=== PATIENT | female | born 1975 | race Caucasian/White ===

== ENCOUNTER 2018-07-19 15:51 | Inpatient (IN) ==
[2018-07-19] MEDS ORDERED: MoRPHine SULFATE 4 MG/ML 1 ML CARP\\VIAL IV STA (18:09)
[2018-07-19] MEDS ORDERED: SODIUM CHLORIDE 0.9% 1000ML 1,000 ML IV SCH (18:15)
[2018-07-19 18:37] LABS: Basophils # (auto) 0.07 K/uL (0-0.2); Basophils % (auto) 0.9 %; Eosinophils % (auto) 3.8 %; Hematocrit (blood only) 38.9 % (37-47); Hemoglobin 12.8 g/dL (12.0-16.0); Immature Granulocytes # (auto) 0.05 K/uL (0.00-0.02); Immature Granulocytes % (auto) 0.6 %; Lymphocytes # (auto) 2.48 K/uL (1.2-3.4); Lymphocytes % (auto) 31.1 %; Mean Corpuscular Hgb Conc 32.9 g/dL (32-36); Mean Corpuscular Volume 88.6 fL (80-100); Mean Platelet Volume 9.1 fL (7.4-10.4); Monocytes # (auto) 0.49 K/uL (0.11-0.59); Monocytes % (auto) 6.1 %; Neutrophils # (auto) 4.59 K/uL (1.4-6.5); Neutrophils % (auto) 57.5 %; Platelet Count 234 K/uL (130-400); RDW Coefficient of Variation 13.5 % (11.5-14.5); RDW Standard Deviation 43.9 fL (36.4-46.3); Red Blood Count 4.39 M/uL (4.2-5.4); White Blood Count 7.98 K/uL (4.8-10.8)
[2018-07-19 18:54] LABS: Appearance Urine Cloudy (Clear); Bacteria Urine Automated Negative (Negative); Bilirubin Urine Negative (Negative); Color Urine Yellow; Epithelial Cell Urine Auto >30 /lpf (0-5); Glucose Urine UA Negative (Negative); Ketones Urine Negative (Negative); Leukocyte Esterase Urine 1+ (Negative); Nitrite Urine Negative (Negative); Protein Urine Negative (Negative); Specific Gravity Urine 1.017 (1.000-1.030); Urobilinogen Urine Negative (Negative); pH Urine 5.5 (4.5-7.5)
[2018-07-19 19:00] LABS: Albumin Globulin Ratio 0.4 (0.9-2); Albumin Level 2.7 gm/dl (3.4-5.0); BUN Creatinine Ratio 18.2 (10-20); Bilirubin,Total 0.3 mg/dl (0.2-1); Est GFR (African American) 118.6; Est GFR (Non-African American) 102.3; Globulin 6.6 gm/dl (2.5-4.0); Total Protein 9.3 gm/dl (6.4-8.2)
[2018-07-19 19:06] LABS: Potassium 3.9 mmol/L (3.5-5.1)
[2018-07-19] MEDS: ONDANSETRON INJ 2 MG/ML 2 ML VIAL IV STA (19:09)
--- NOTE | 2018-07-19 20:00 | Ultrasound Report ---
EXAMINATION: RENAL ULTRASOUND CLINICAL HISTORY: Right flank pain COMPARISON STUDY: FINDINGS: The right kidney measures 14.2 cm. The left kidney measures 13.2 cm. There is mild right-s ided hydronephrosis. The proximal right ureter is mildly dilated measuring 12 mm. There are no renal masses. The bladder was not well-distended. Neither ureteral jet was visualized. IMPRESSION : 1. Mild right-sided hydronephrosis and proximal hydroureter. In the setting of acute right flank pain , this may indicate an obstructing calculus. A CT scan could be obtained in follow-up for further zia luation as deemed clinically necessary. Electronically signed by: Andrei Voss M.D. 07/19/2018 7:59 PM
[2018-07-19] MEDS ORDERED: cefTRIAXone SODIUM 1,000 MG/50 ML BAG IV STA (20:14)
--- NOTE | 2018-07-19 20:20 | XRay Report ---
KUB CLINICAL HISTORY: Right flank pain. COMPARISON STUDY: None. FINDINGS: Both renal shadows are partially obscured by stool. A round 2 mm right pelvic calcification is noted. There is also a 3 mm calcification inferior to the right sacroiliac joint. Additional pelv ic calcifications likely reflect phleboliths. Bowel gas pattern is normal. IMPRESSION: 1. 3 mm right upper calcification just inferior to the right sacroiliac joint. This raises the possib ility of a ureteral calculus. The appearance is not typical for a phlebolith. Vascular calcification could have this appearance. 2. 2 mm rounded right pelvic calcification which favors a phlebolith although a distal right ureteral calculus could have this appearance. Electronically signed by: Jagjit Holguin M.D. 07/19/2018 8:19 PM
--- NOTE | 2018-07-19 21:52 | History & Physical Report ---
Date of Service July 19, 2018 Assessment & Plan (1) Complicated UTI (urinary tract infection): Obstructive uropathy Persistent symptoms Failed outpatient treatment outpatient urine CS drawn at [facility] unknown patient not septic. psoriatic arthritis, stable disease asthma/pulmonary sarcoidosis, stable as per patient intermittent tobacco abuse GMF Follow urine CS done at [facility] Continue Flomax, oral cephalosporin Rx Urology consult RE obstructive uropathy right (ER provider already in touch with Dr. Whittington. Surgery contemplated tomorrow morning.) Nicotine replacement therapy as needed DVT prophylaxis. Lovenox subcu Full code Patient sister requesting updates from providers. Ms. Elham Coleman, contact #[phone]. History of Present Illness Chief Complaint: Right flank pain Primary Care Provider: Dr. Lopez History obtained from patient and records. Medical history significant for psoriatic arthritis, asthma/pulmonary sarcoidosis, hypothyroidism, intermittent tobacco abuse. 10 days ago patient seen at [facility] for UTI symptoms attributed to UTI. Patient prescribed Macrodantin. Patient still unwell a week later. Patient noted worsening right flank pain, no hematuria, no fever, no chills. CAT scan of the abdomen pelvis done at [facility] last week showed 3 kidney stones on the right as per patient. She was prescribed Cefuroxime and Flomax. Outpatient urology referral in [place], [place] contemplated. Patient brought by sister to the emergency room for worsening symptoms. 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 Allergies Allergy/AdvReac Type Severity Reaction Status Date / Time prednisone Allergy Severe Swelling Verified 07/19/18 19:04 of Lip/Tongue/Throat Home Medications Home Medications Medication Instructions Recorded Confirmed Type cefuroxime axetil 500 mg PO Q12H 07/19/18 07/19/18 History fluoxetine [Prozac] 40 mg PO DAILY 07/19/18 07/19/18 History ketorolac 10 mg PO Q6H PRN 07/19/18 07/19/18 History levothyroxine 125 mcg PO DAILY 07/19/18 07/19/18 History loratadine 10 mg PO DAILY 07/19/18 07/19/18 History tamsulosin [Flomax] 0.4 mg PO DAILY 07/19/18 07/19/18 History Past Med/Surg History Medical History Arthritis Asthma Fatty liver Hypothyroid Obesity Sarcoidosis Surgical History History of History of liver biopsy History of lung biopsy History of tubal ligation Family History Other Family history non-contributory Social History Current Living Situation: Family and Significant Other Current Living Situation Comment: 3 children, boyfriend Other Information That Helps Us Care for You: No Feels Safe at Home: Yes Safety Concerns: Feels Safe At This Time Smoking Status: Light tobacco smoker Tobacco Type: cigarettes Cigarettes per Day: smokes 1 pack/month, recreationally Do You Dip or Chew Tobacco: No Hx Alcohol Use: Yes Alcohol type: wine Alcohol Intake Frequency: holidays/ special occasions only Hx Substance Use: No Beliefs That Will Affect Care: None Preferred Language: Bolivian Communication Ability: Effective Tower Climber Required: No Review of Systems As per HPI, all 10 systems reviewed, all other ROS negative Physical Exam 2 Vital Signs (Past 24 Hours): Last Vital Signs Temp 36.7 C 07/19/18 16:03 Pulse 80 07/19/18 21:31 Resp 17 07/19/18 21:31 BP 119/65 07/19/18 21:31 Pulse Ox 96 07/19/18 21:31 Physical Exam: GENERAL: Comfortable, obese, no respiratory distress SKIN: Normal color, warm HEENT: Henry palpebral conjunctivae, no ptosis, dry buccal mucosa NECK : Supple, short neck, no tenderness CHEST : CTA, no tenderness HEART : RRR, no obvious murmurs ABDOMEN: Some distention, right-sided abdominal tenderness EXTREMITIES : No LE swelling/tenderness, no other conspicuous deformities noted NEUROLOGIC : Coherent, no facial asymmetry, no other gross focality Results & Data Laboratory Results Laboratory Results WBC 7.98 K/uL (4.8-10.8) 07/19/18 18:26 RBC 4.39 M/uL (4.2-5.4) 07/19/18 18:26 Hgb 12.8 g/dL (12.0-16.0) 07/19/18: Hct 38.9 % (37-47) 07/19/18: MCV 88.6 fL (80-100) 07/19/18 MCH 29.2 pg (25-34) 07/19/18 MCHC 32.9 g/dL (32-36) 07/19/18 RDW Std Deviation 43.9 fL (36.4-46.3) 07/19/18 RDW Coeff of Loulou 13.5 % (11.5-14.5) 07/19/18 Plt Count 234 K/uL (130-400) 07/19/18 MPV 9.1 fL (7.4-10.4) 07/19/18: Immature Gran % (Auto) 0.6 % 07/19/18: Neut % (Auto) 57.5 % 07/19/18: Lymph % (Auto) 31.1 % 07/19/18: [place] % (Auto) 6.1 % 07/19/18: Eos % (Auto) 3.8 % 07/19/18: Baso % (Auto) 0.9 % 07/19/18: Immature Gran # (Auto) 0.05 K/uL (0.00-0.02) H 07/19/18 Neut # (Auto) 4.59 K/uL (1.4-6.5) 07/19/18: Lymph # (Auto) 2.48 K/uL (1.2-3.4) 07/19/18: [place] # (Auto) 0.49 K/uL (0.11-0.59) 07/19/18: Eos # (Auto) 0.30 K/uL (0-0.5) 07/19/18: Baso # (Auto) 0.07 K/uL (0-0.2) 07/19/18: Sodium 137 mmol/L (136-145) 07/19/18: Potassium 3.9 mmol/L (3.5-5.1) 07/19/18: Chloride 101 mmol/L (98-107) 07/19/18 18: Carbon Dioxide 29 mmol/L (21-32) 07/19/18 18: Anion Gap 6.0 (3-11) 07/19/18 18: BUN 13 mg/dl (7-18) 07/19/18 18: Creatinine 0.73 mg/dl (0.6-1.2) 07/19/18 18 Est Cr Clr Drug Dosing 128.0 ml/min 07/19/18 18: Est GFR ( Amer) 118.6 07/19/18 18: Est GFR (Non-Af Amer) 102.3 07/19/18 18 BUN/Creatinine Ratio 18.2 (10-20) 07/19/18: Glucose 96 mg/dl (70-99) 07/19/18 18: Calcium 9.0 mg/dl (8.5-10.1) 07/19/18: Magnesium 1.8 mg/dl (1.8-2.4) 07/19/18: Total Bilirubin 0.3 mg/dl (0.2-1) 07/19/18 18: AST 51 U/L (15-37) H 07/19/18 18: ALT 52 U/L (12-78) 07/19/18: Alkaline Phosphatase 100 U/L (45-117) 07/19/18 18: Total Protein 9.3 gm/dl (6.4-8.2) H 07/19/18: Albumin 2.7 gm/dl (3.4-5.0) L 07/19/18: Globulin 6.6 gm/dl (2.5-4.0) H 07/19/18 18: Albumin/Globulin Ratio 0.4 (0.9-2) L 07/19/18: Lipase 138 U/L (73-393) 07/19/18 18: Urine Color Yellow 07/19/18 18: Urine Appearance Cloudy (Clear) H 07/19/18 18: Urine pH 5.5 (4.5-7.5) 07/19/18 18: Ur Specific [place] 1.017 (1.000-1.030) 07/19/18 18:26 Urine Protein Negative (Negative) 07/19/18 18:26 Urine Glucose (UA) Negative (Negative) 07/19/18 18:26 Urine Ketones Negative (Negative) 07/19/18 18:26 Urine Blood 1+ (Negative) H 07/19/18 18:26 Urine Nitrite Negative (Negative) 07/19/18 18:26 Urine Bilirubin Negative (Negative) 07/19/18 18:26 Urine Urobilinogen Negative (Negative) 07/19/18 18:26 Ur Leukocyte Esterase 1+ (Negative) H 07/19/18 18:26 Urine WBC (Auto) 10-30 /hpf (0-5) H 07/19/18 18:26 Urine RBC (Auto) 10-30 /hpf (0-4) H 07/19/18 18: U Hyaline Cast (Auto) 1-5 /lpf (0-5) 07/19/18 18: U Epithel Cells (Auto) >30 /lpf (0-5) H 07/19/18 18:26 Urine Bacteria (Auto) Negative (Negative) 07/19/18 18:26 Diagnostic Findings KUB x-ray: 1. 3 mm right upper calcification just inferior to the right sacroiliac joint. This raises the possibility of a ureteral calculus. The appearance is not typical for a phlebolith. Vascular calcification could have this appearance. 2. 2 mm rounded right pelvic calcification which favors a phlebolith although a distal right ureteral calculus could have this appearance. Renal ultrasound: Mild right-sided hydronephrosis and proximal hydroureter. In the setting of acute right flank pain, this may indicate an obstructing calculus. A CT scan could be obtained in follow-up for further evaluation as deemed clinically necessary.
[2018-07-19] MEDS ORDERED: OXYCODONE/ACETAMINOPHEN 5mg/325mg TAB PO PRN (22:45)
[2018-07-19] MEDS ORDERED: PROCHLORPERAZINE 5 MG in SYRINGE 4 ML IV PRN (22:45)
[2018-07-19] MEDS ORDERED: ACETAMINOPHEN 325 MG TAB PO PRN (22:45)
[2018-07-19] MEDS ORDERED: LORazepam 0.5 MG/1 ML VIAL IV PRN (22:45)
--- NOTE | 2018-07-19 23:36 | Emergency Department Note ---
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 She reports she went to the ED recently for flank pain and had a CT scan which she states showed 3 kidney stones and an infection. She states her doctor told her that she has a blockage and she needs a stent. She reports her pain starts in her right flank and radiates to her back. Pt notes her pain is worse with movement. She denies nausea, vomiting, fevers, hx of kidney stones, previous abdominal surgeries. No other exacerbating or remitting factors. Home Medications Home Medications Medication Instructions Recorded Confirmed Type cefuroxime axetil 500 mg PO Q12H 07/19/18 07/19/18 History fluoxetine [Prozac] 40 mg PO DAILY 07/19/18 07/19/18 History ketorolac 10 mg PO Q6H PRN 07/19/18 07/19/18 History levothyroxine 125 mcg PO DAILY 07/19/18 07/19/18 History loratadine 10 mg PO DAILY 07/19/18 07/19/18 History tamsulosin [Flomax] 0.4 mg PO DAILY 07/19/18 07/19/18 History Allergies Allergy/AdvReac Type Severity Reaction Status Date / Time prednisone Allergy Severe Swelling Verified 07/19/18 19:04 of Lip/Tongue/Throat Past Med/Surg History Medical History No significant past medical history Family History Other Family history non-contributory Social History Current Living Situation: Family Feels Safe at Home: Yes Smoking Status: Current some day smoker Preferred Language: Nigerian Review of Systems See HPI for pertinent positives & negatives. and A total of 10 systems reviewed and were otherwise negative Physical Exam Vital Signs Vital Signs - 24 hr 07/19/18 16:03 07/19/18 19:11 07/19/18 21:31 Temperature 36.7 C Temperature Source Oral Sepsis Recent Fever Within 48 Hours No Sepsis New/Unexplained Change in Mental Status No Sepsis Action Taken by Nursing No Action Required Pulse Rate 72 Pulse Rate [Right Finger] 71 80 Pulse Rhythm Regular Pulse Rhythm [Right Finger] Pulse Strength Normal Pulse Strength [Right Finger] Respiratory Rate 20 18 17 Respiratory Effort / Characteristics Non-Labored Spontaneous Respiratory Depth Normal Respiratory Pattern Regular Blood Pressure 161/98 H Blood Pressure [Right Arm] 128/84 119/65 Blood Pressure Mean 119 Blood Pressure Mean [Right Arm] 98 83 Blood Pressure Position Sitting Blood Pressure Position [Right Arm] Pulse Oximetry 97 93 96 Oxygen Delivery Method Room Air Room Air Room Air 07/19/18 22:15 07/19/18 22:49 Temperature 36.9 C Temperature Source Oral Sepsis Recent Fever Within 48 Hours Sepsis New/Unexplained Change in Mental Status Sepsis Action Taken by Nursing Pulse Rate 74 Pulse Rate [Right Finger] 87 Pulse Rhythm Pulse Rhythm [Right Finger] Regular Pulse Strength Pulse Strength [Right Finger] Normal Respiratory Rate 18 18 Respiratory Effort / Characteristics Non-Labored Spontaneous Respiratory Depth Normal Respiratory Pattern Blood Pressure 130/75 Blood Pressure [Right Arm] 120/81 Blood Pressure Mean Blood Pressure Mean [Right Arm] 94 Blood Pressure Position Blood Pressure Position [Right Arm] Standing Pulse Oximetry 97 94 Oxygen Delivery Method Room Air Room Air GENERAL: Sitting up in bed, alert, well appearing, well nourished, no distress, non-toxic EYE EXAM: normal conjunctiva. OROPHARYNX: no exudate, no erythema, lips, buccal mucosa, and tongue normal and mucous membranes are moist NECK: supple, no nuchal rigidity, no adenopathy, non-tender LUNGS: Clear to auscultation. Normal chest wall mechanics HEART: no murmurs, S1 normal and S2 normal ABDOMEN: abdomen soft, tender to palpation in the RLQ, normo-active bowel, sounds, no masses, no rebound or guarding. BACK: Back is symmetrical on inspection and there is no deformity, no midline tenderness, no CVA tenderness. SKIN: no rashes and no bruising UPPER EXTREMITIES: upper extremities are grossly normal. LOWER EXTREMITIES: No pitting edema. NEURO EXAM: Normal sensorium, cranial nerves II-XII grossly intact, normal speech, no gross weakness of arms, no gross weakness of legs. Course ED COURSE: Vital signs were reviewed and showed hypertensive. The patients medical record was reviewed The above diagnostic studies were performed and reviewed. ED treatments and interventions as stated above. 1804: The patient was evaluated in room B2. A complete history and physical examination was performed. 1955: I checked on the patient at this time. I updated her that her results show E. coli sensitive to antibiotic treatment and CT shows a 5 mm stone. 2007: I reviewed the patient's case with Dr. Whittington, Urology. He recommends the patient be further evaluated. 2024: I reviewed the patient's case with Dr. Jarrell [facility]ist. He will evaluate the patient for further management. 2029: Upon reevaluation, the patient is feeling better. I discussed my findings with the patient and she understands and agrees with the treatment plan. Based on the patients age, coexisting illnesses, exam and lab findings the decision to treat as an inpatient was made. The patient remained stable while under my care. The patient will be evaluated for further management. Consultations Consultation #1: I reviewed the patient's case with Dr. Whittington, Urology. He recommends the patient be further evaluated. Time: 20:08 Consultation #2: I reviewed the patient's case with Dr. Jarrell [facility]. He will evaluate the patient for further management. Time: 20:25 Administered Medications Discontinued Medications Sodium Chloride (Nss 1000ml) 1,000 mls @ 999 mls/hr IV .Q1H1M OLEGARIO Stop: 07/19/18 19:15 Last Infusion: 07/19/18 20:14 Dose: 0 mls/hr Admin: 07/19/18 19:09 Dose: 999 mls/hr Ceftriaxone Sodium (Rocephin) 1,000 mg in 50 mls @ 100 mls/hr IV NOW STA Stop: 07/19/18 20:43 Last Infusion: 07/19/18 20:52 Dose: 0 mls/hr Admin: 07/19/18 20:20 Dose: 100 mls/hr Morphine Sulfate (Morphine Sulfate) 4 mg IV NOW STA Stop: 07/19/18 18:10 Last Admin: 07/19/18 19:10 Dose: 4 mg Ondansetron HCl (Zofran) 4 mg IV NOW STA Stop: 07/19/18 18:10 Last Admin: 07/19/18 19:09 Dose: 4 mg Admin: 02/18/19 19:09 Dose: 4 mg Medical Decision Making Differential Diagnosis Differential diagnoses includes but is not limited to gastritis, peptic ulcer disease, GERD, gallbladder disease, pancreatitis, small bowel obstruction, acute coronary syndrome, pericarditis, ischemic bowel, irritable bowel disease, irritable bowel syndrome, appendicitis, diverticulitis, malignancy, hernia, urinary tract infection, torsion, [/ectopic (if female)], perforation, trauma, infectious. Medical Records Attestation: I reviewed the patient's medical records. Home Medications Current Medication List: was personally reviewed by me Laboratory Data Attestation: I reviewed the patient's lab results. Result diagrams: 07/19/18 18:26 07/19/18 18:26 Lab Results 07/19/18 07/19/18 07/19/18 Range/Units 18:26 18:26 18:26 WBC 7.98 (4.8-10.8) K/uL RBC 4.39 (4.2-5.4) M/uL Hgb 12.8 (12.0-16.0) g/dL Hct 38.9 (37-47) % MCV 88.6 (80-100) fL MCH 29.2 (25-34) pg MCHC 32.9 (32-36) g/dL RDW Std Deviation 43.9 (36.4-46.3) fL RDW Coeff of Loulou 13.5 (11.5-14.5) % Plt Count 234 (130-400) K/uL MPV 9.1 (7.4-10.4) fL Immature Gran % (Auto) 0.6 % Neut % (Auto) 57.5 % Lymph % (Auto) 31.1 % [place] % (Auto) 6.1 % Eos % (Auto) 3.8 % Baso % (Auto) 0.9 % Immature Gran # (Auto) 0.05 H (0.00-0.02) K/uL Neut # (Auto) 4.59 (1.4-6.5) K/uL Lymph # (Auto) 2.48 (1.2-3.4) K/uL [place] # (Auto) 0.49 (0.11-0.59) K/uL Eos # (Auto) 0.30 (0-0.5) K/uL Baso # (Auto) 0.07 (0-0.2) K/uL Sodium 137 (136-145) mmol/L Potassium 3.9 (3.5-5.1) mmol/L Chloride 101 (98-107) mmol/L Carbon Dioxide 29 (21-32) mmol/L Anion Gap 6.0 (3-11) BUN 13 (7-18) mg/dl Creatinine 0.73 (0.6-1.2) mg/dl Est Cr Clr Drug Dosing 128.0 ml/min Est GFR ( Amer) 118.6 Est GFR (Non-Af Amer) 102.3 BUN/Creatinine Ratio 18.2 (10-20) Glucose 96 (70-99) mg/dl Calcium 9.0 (8.5-10.1) mg/dl Magnesium (1.8-2.4) mg/dl Total Bilirubin 0.3 (0.2-1) mg/dl AST 51 H (15-37) U/L ALT 52 (12-78) U/L Alkaline Phosphatase 100 (45-117) U/L Total Protein 9.3 H (6.4-8.2) gm/dl Albumin 2.7 L (3.4-5.0) gm/dl Globulin 6.6 H (2.5-4.0) gm/dl Albumin/Globulin Ratio 0.4 L (0.9-2) Lipase 138 (73-393) U/L TSH (0.300-4.500) uIu/ml Urine Color Yellow Urine Appearance Cloudy H (Clear) Urine pH 5.5 (4.5-7.5) Ur Specific [place] 1.017 (1.000-1.030) Urine Protein Negative (Negative) Urine Glucose (UA) Negative (Negative) Urine Ketones Negative (Negative) Urine Blood 1+ H (Negative) Urine Nitrite Negative (Negative) Urine Bilirubin Negative (Negative) Urine Urobilinogen Negative (Negative) Ur Leukocyte Esterase 1+ H (Negative) Urine WBC (Auto) 10-30 H (0-5) /hpf Urine RBC (Auto) 10-30 H (0-4) /hpf U Hyaline Cast (Auto) 1-5 (0-5) /lpf U Epithel Cells (Auto) >30 H (0-5) /lpf Urine Bacteria (Auto) Negative (Negative) 02/18/19 02/18/19 Range/Units 18:26 18:26 WBC (4.8-10.8) K/uL RBC (4.2-5.4) M/uL Hgb (12.0-16.0) g/dL Hct (37-47) % MCV (80-100) fL MCH (25-34) pg MCHC (32-36) g/dL RDW Std Deviation (36.4-46.3) fL RDW Coeff of Loulou (11.5-14.5) % Plt Count (130-400) K/uL MPV (7.4-10.4) fL Immature Gran % (Auto) % Neut % (Auto) % Lymph % (Auto) % [place] % (Auto) % Eos % (Auto) % Baso % (Auto) % Immature Gran # (Auto) (0.00-0.02) K/uL Neut # (Auto) (1.4-6.5) K/uL Lymph # (Auto) (1.2-3.4) K/uL [place] # (Auto) (0.11-0.59) K/uL Eos # (Auto) (0-0.5) K/uL Baso # (Auto) (0-0.2) K/uL Sodium (136-145) mmol/L Potassium (3.5-5.1) mmol/L Chloride (98-107) mmol/L Carbon Dioxide (21-32) mmol/L Anion Gap (3-11) BUN (7-18) mg/dl Creatinine (0.6-1.2) mg/dl Est Cr Clr Drug Dosing ml/min Est GFR ( Amer) Est GFR (Non-Af Amer) BUN/Creatinine Ratio (10-20) Glucose (70-99) mg/dl Calcium (8.5-10.1) mg/dl Magnesium 1.8 (1.8-2.4) mg/dl Total Bilirubin (0.2-1) mg/dl AST (15-37) U/L ALT (12-78) U/L Alkaline Phosphatase (45-117) U/L Total Protein (6.4-8.2) gm/dl Albumin (3.4-5.0) gm/dl Globulin (2.5-4.0) gm/dl Albumin/Globulin Ratio (0.9-2) Lipase (73-393) U/L TSH 13.900 H (0.300-4.500) uIu/ml Urine Color Urine Appearance (Clear) Urine pH (4.5-7.5) Ur Specific [place] (1.000-1.030) Urine Protein (Negative) Urine Glucose (UA) (Negative) Urine Ketones (Negative) Urine Blood (Negative) Urine Nitrite (Negative) Urine Bilirubin (Negative) Urine Urobilinogen (Negative) Ur Leukocyte Esterase (Negative) Urine WBC (Auto) (0-5) /hpf Urine RBC (Auto) (0-4) /hpf U Hyaline Cast (Auto) (0-5) /lpf U Epithel Cells (Auto) (0-5) /lpf Urine Bacteria (Auto) (Negative) Imaging Data Radiologist's Impression: Radiology results as stated below per my review and the radiologist's interpretation: KUB CLINICAL HISTORY: Right flank pain. COMPARISON STUDY: None. FINDINGS: Both renal shadows are partially obscured by stool. A round 2 mm right pelvic calcification is noted. There is also a 3 mm calcification inferior to the right sacroiliac joint. Additional pelvic calcifications likely reflect phleboliths. Bowel gas pattern is normal. IMPRESSION: 1. 3 mm right upper calcification just inferior to the right sacroiliac joint. This raises the possibility of a ureteral calculus. The appearance is not typical for a phlebolith. Vascular calcification could have this appearance. 2. 2 mm rounded right pelvic calcification which favors a phlebolith although a distal right ureteral calculus could have this appearance. Electronically signed by: Jagjit Holguin M.D. 07/19/2018 8:19 PM EXAMINATION: RENAL ULTRASOUND CLINICAL HISTORY: Right flank pain COMPARISON STUDY: FINDINGS: The right kidney measures 14.2 cm. The left kidney measures 13.2 cm. There is mild right-sided hydronephrosis. The proximal right ureter is mildly dilated measuring 12 mm. There are no renal masses. The bladder was not well-distended. Neither ureteral jet was visualized. IMPRESSION : 1. Mild right-sided hydronephrosis and proximal hydroureter. In the setting of acute right flank pain, this may indicate an obstructing calculus. A CT scan could be obtained in follow-up for further evaluation as deemed clinically necessary. Electronically signed by: Andrei Voss M.D. 07/19/2018 7:59 PM Blood Pressure Blood Pressure Findings: Elevated blood pressure Blood Pressure Disposition: elevated BP felt to be situational MDM Narrative Patient is a 43-year-old female who presents the ER for a known stone in her right ureter. She is a recent culture which grew out E. coli greater than 100, 000. It was susceptible to third generation cephalosporin which she was placed on. Labs were obtained and showed no significant leukocytosis or anemia. BMP along with LFTs was unremarkable. Lipase was normal. TSH was significantly elevated. UA was contaminated with multiple epithelial cells but do have culture from previous. CT did show a 5 mm right ureteral stone. Ultrasound today shows hydronephrosis. Patient was given IV Rocephin. Discussed with urology and they will likely stent her tomorrow. Updated patient at bedside. Discussed with the hospitalist patient was admitted for hydronephrosis with a right renal stone and a UTI Impression & Plan Renal colic, Hydronephrosis, Complicated UTI (urinary tract infection) Discharge Plan Visit Data *Final* Discharge Date/Time: 07/19/18 22:15 Chief Complaint: Flank Pain Stated Complaint: KIDNEY INFECTION/STONES W/ BLOCKAGE ED Provider: Delta Cannon Discharge Problem: Renal colic, Hydronephrosis, Complicated UTI (urinary tract infection) Patient Disposition: Admitted As Inpatient Discharge Instructions Interventions: ED Discharge Assessment Last Done: 07/19/18 22:15 The scribe's documentation has been prepared under my direction and personally reviewed by me in its entirety. I confirm that the note above accurately reflects all work, treatment, procedures, and medical decision making performed by me.
[2018-07-20] MEDS: cefUROXime axetil 500 MG TAB PO SCH ×2 (00:06→08:58)
[2018-07-20] MEDS: NSS + 20MEQ KCL 20 MEQ/1,000 ML BAG IV SCH ×2 (00:06→12:34)
[2018-07-20] MEDS: MoRPHine SULFATE 4 MG/ML 1 ML CARP\\VIAL IV PRN ×3 (00:07→10:46)
[2018-07-20] MEDS ORDERED: CIPROFLOXACIN 400 MG/200 ML BAG IV SCH (06:00)
[2018-07-20] MEDS ORDERED: LEVOTHYROXINE SODIUM 125 MCG TABLET PO SCH (06:30)
[2018-07-20 08:00] LABS: Basophils # (auto) 0.06 K/uL (0-0.2); Basophils % (auto) 0.8 %; Eosinophils # (auto) 0.29 K/uL (0-0.5); Eosinophils % (auto) 3.8 %; Hematocrit (blood only) 36.6 % (37-47); Hemoglobin 11.9 g/dL (12.0-16.0); Immature Granulocytes # (auto) 0.04 K/uL (0.00-0.02); Immature Granulocytes % (auto) 0.5 %; Lymphocytes # (auto) 2.17 K/uL (1.2-3.4); Lymphocytes % (auto) 28.6 %; Mean Corpuscular Hgb Conc 32.5 g/dL (32-36); Mean Corpuscular Volume 89.7 fL (80-100); Mean Platelet Volume 9.1 fL (7.4-10.4); Monocytes # (auto) 0.49 K/uL (0.11-0.59); Monocytes % (auto) 6.4 %; Neutrophils # (auto) 4.55 K/uL (1.4-6.5); Neutrophils % (auto) 59.9 %; Platelet Count 193 K/uL (130-400); RDW Coefficient of Variation 13.6 % (11.5-14.5); RDW Standard Deviation 44.6 fL (36.4-46.3); Red Blood Count 4.08 M/uL (4.2-5.4)
[2018-07-20 08:10] LABS: INR 1.1 (0.9-1.1); Prothrombin Time 10.9 Seconds (9.0-12.0)
[2018-07-20 08:25] LABS: Albumin Level 2.3 gm/dl (3.4-5.0); BUN Creatinine Ratio 17.8 (10-20); Calcium 8.2 mg/dl (8.5-10.1); Creatinine Clr Calc Pharmacy 135.3 ml/min; Est GFR (African American) 125.3; Est GFR (Non-African American) 108.1
[2018-07-20 08:29] LABS: Albumin Globulin Ratio 0.4 (0.9-2); Bilirubin,Total 0.2 mg/dl (0.2-1); Globulin 5.7 gm/dl (2.5-4.0)
--- NOTE | 2018-07-20 08:43 | Urology Consultation ---
Date of Consultation July 20, 2018 Assessment & Plan (1) Renal colic: (2) Complicated UTI (urinary tract infection): (3) Hydronephrosis: 43yo F with R flank pain x2 weeks associated with ? ureteral stones and UTI. She is clinically stable, however it appears pt has been dealing with these stones for quite some time now, and renal colic is becoming more difficult to control. Renal US shows mild R hydro, and KUB reveals 2 suspected small stones to R mid and R distal ureter. Requesting CT imaging from [facility] to confirm diagnosis, to be reviewed by Dr. Whittington. We discussed options of observation, vs ureteral stent placement, vs ureterscopy with LL. This is her first stone, ureteroscopy may prove to be too difficult to achieve at this time. Findings reviewed with patient and Dr. Cronin. UTI and renal colic in the context of an suspected obstructing R ureteral stone. Covered with PO cefuroxime as inpatient, will add IV cipro preoperatively. Will proceed to OR for cysto, right RPG, stent placement, possible ureteroscopy , laser litho, stone basketing depending on findings. Risks and benefits reviewed with patient by Dr. Whittington. OR notified. Surgery today. Please contact our service urgently if patient develops fever, pain or vomiting becomes intractable. Await repeat cultures, broad spectrum coverage based on past cultures until current cultures available. History of Present Illness Reason for Consultation: ureteral stone Requesting Physician: ureteral stone Attending Physician: Sotero Odonnell MD History of Present Illness 43yo F presented to [facility] ED last evening after 2 weeks of R flank pain, radiating to back. Evaluated by PCP, CT scan ordered through [facility] which revealed 3 stones and an infection - renal vs ureteral? unclear. Calling to have images sent to [facility] now. [facility] UC/S reveals E.coli - requesting record. Per Pt, ompleted 5d course of macrobid, off for two days, then pain recurred. States she was put on a new abx begins with 'C'. Repeat UA abn, with contamination, leuks and blood. UC&S pending. Renal u/s reveals mild right-sided hydronephrosis and proximal hydroureter. KUB shows two suspected small stones to R mid and R distal ureter. This is her first stone, has never been previously evaluated by urologist for any other reason. Wbc and Cr stable. Flank Pain is currently present but controlled, requiring IV medication. Denies SP pain. Denies nausea/vomiting. Denies CP/SOB. Voiding spontaneously, some dysuria. Denies hematuria. Allergies Allergy/AdvReac Type Severity Reaction Status Date / Time prednisone Allergy Severe Swelling Verified 07/19/18 19:04 of Lip/Tongue/Throat Home Medications Home Medications Medication Instructions Recorded Confirmed Type cefuroxime axetil 500 mg PO Q12H 07/19/18 07/19/18 History fluoxetine [Prozac] 40 mg PO DAILY 07/19/18 07/19/18 History ketorolac 10 mg PO Q6H PRN 07/19/18 07/19/18 History levothyroxine 125 mcg PO DAILY 07/19/18 07/19/18 History loratadine 10 mg PO DAILY 07/19/18 07/19/18 History tamsulosin [Flomax] 0.4 mg PO DAILY 07/19/18 07/19/18 History Patient History Medical History Arthritis Fatty liver Hypothyroid Obesity Sarcoidosis Surgical History History of History of liver biopsy History of lung biopsy History of tubal ligation Family History Other Family history non-contributory Social History Current Living Situation: Family and Significant Other Current Living Situation Comment: 3 children, boyfriend Other Information That Helps Us Care for You: No Feels Safe at Home: Yes Safety Concerns: Feels Safe At This Time Smoking Status: Light tobacco smoker Tobacco Type: cigarettes Cigarettes per Day: smokes 1 pack/month, recreationally Do You Dip or Chew Tobacco: No Second Hand Exposure: No Tobacco Cessation Education Requested by Patient: No Hx Alcohol Use: Yes Alcohol type: wine Alcohol Intake Frequency: holidays/ special occasions only Hx Substance Use: No Beliefs That Will Affect Care: None Preferred Language: Occitan Communication Ability: Effective Soaking Pit Operator Required: No Review of Systems Constitutional: no fever and no chills Eyes: no problem reported Ear, Nose, Mouth, Throat: no ear pain Respiratory: no cough and no dyspnea Cardiovascular: no chest pain Gastrointestinal: no abdominal pain Genitourinary (Female): + dysuria; no urinary hesitancy and no decreased urination Musculoskeletal: no back pain Integumentary: no acne Neurologic: no paralysis, no numbness and no paresthesia Psychiatric: no behavioral changes Endocrine: no fatigue and no polydipsia Hematologic / Lymphatic: no easy bleeding Allergy / Immunological: no GI upset with certain foods Physical Exam 2 Vital Signs (Past 24 Hours): Last Vital Signs Temp 37.0 C 07/20/18 07:25 Pulse 82 07/20/18 07:25 Resp 16 07/20/18 07:25 BP 124/82 07/20/18 07:25 Pulse Ox 93 07/20/18 07:25 Constitutional: no acute distress Eyes: no nystagmus ENMT: Ears: no hearing impairment Neck: trachea midline Respiratory: no respiratory distress, no labored breathing and does not use accessory muscles Cardiovascular: Vessels: no JVD Gastrointestinal (Abdomen): Inspection/Auscultation: abdomen not distended and no abdominal edema Musculoskeletal: Head/Neck/Chest: + abnormal head shape Skin: no rashes, warm and dry Psychiatric: Orientation: alert and oriented x 3 Lymphatic: no cervical or axillary lymphadenopathy _ (1) Hydronephrosis Hydronephrosis type: unspecified Qualified Code(s): N13.30 - Unspecified hydronephrosis
[2018-07-20] MEDS ORDERED: ENOXAPARIN INJ 40 MG/0.4 ML SYR SQ SCH (09:00)
[2018-07-20] MEDS ORDERED: TAMSULOSIN HCL 0.4 MG CAP PO SCH (09:00)
[2018-07-20] MEDS ORDERED: FLUOXETINE HCL 20 MG CAP PO SCH (09:00)
[2018-07-20] MEDS ORDERED: LORATADINE 10 MG TAB PO SCH (09:00)
--- NOTE | 2018-07-20 16:06 | Anesthesiology Consultation ---
Date of Service July 20, 2018 Assessment & Plan Chart Review Chart Review: Acceptable Risk for Surgery and Patient NOT seen in Pre Admission Testing Consults Requested none ASA ASA3 Proposed Anesthesia Anesthesia Type: General and MAC Risk / Benefits Reviewed With: PT / POA / Parent / Guardian, Accepts Plan and Informed Consent Obtained NPO Date Last Intake of Fluids: 07/20/18 Time Last Intake of Fluids: 23:59 Last Intake of Fluids Comment: sips with meds Date Last Intake of Solids: 07/19/18 Time Last Intake of Solids: 20:00 History Surgery Operation Date: 07/20/18 12:20 Proposed Procedures p Cystoscopy, Retrograde Pyelogram, Right Stent Placement - Markus Whittington MD Height/Weight Height: 5 ft 4 in Weight: 117.7 kg Allergies Allergy/AdvReac Type Severity Reaction Status Date / Time prednisone Allergy Severe Swelling Verified 07/19/18 19:04 of Lip/Tongue/Throat Medications Home Medications Medication Instructions Recorded Confirmed Last Taken cefuroxime axetil 500 mg PO Q12H 07/19/18 07/19/18 07/19/18 AM fluoxetine [Prozac] 40 mg PO DAILY 07/19/18 07/19/18 07/19/18 ketorolac 10 mg PO Q6H PRN 07/19/18 07/19/18 Unknown levothyroxine 125 mcg PO DAILY 07/19/18 07/19/18 07/19/18 loratadine 10 mg PO DAILY 07/19/18 07/19/18 07/19/18 tamsulosin [Flomax] 0.4 mg PO DAILY 07/19/18 07/19/18 07/19/18 Active Medications Generic Name Dose Route Start Last Admin Trade Name Freq PRN Reason Stop Dose Admin Cefuroxime Axetil 500 mg 07/19/18 22:45 07/20/18 08:58 Ceftin PO 07/29/18 22:44 500 mg Q12 OLEGARIO Administration Enoxaparin Sodium 40 mg 07/20/18 09:00 07/20/18 08:58 Lovenox SQ 08/19/18 08:59 Not Given QAM OLEGARIO Fluoxetine HCl 40 mg 07/20/18 09:00 07/20/18 08:59 Prozac PO 08/19/18 08:59 40 mg DAILY OLEGARIO Administration Potassium Chloride/Sodium Chloride 20 meq in 1,000 mls @ 80 mls/hr 07/20/18 00 :00 07/20/18 12:34 Normal Saline W/20 Meq Kcl IV 08/19/18 00:00 80 mls/hr .[id number] OLEGARIO Administration Levothyroxine Sodium 125 mcg 07/20/18 06:30 07/20/18 05:30 Synthroid PO 08/19/18 06:29 125 mcg DAILYBB OLEGARIO Administration Loratadine 10 mg 07/20/18 09:00 07/20/18 08:59 Claritin PO 08/19/18 08:59 10 mg DAILY OLEGARIO Administration Morphine Sulfate 4 mg 07/19/18 22:45 07/20/18 10:46 Morphine Sulfate IV 08/02/18 22:44 4 mg Q4H PRN Administration Pain Tamsulosin HCl 0.4 mg 07/20/18 09:00 07/20/18 08:59 Flomax PO 08/19/18 08:59 0.4 mg DAILY OLEGARIO Administration Past Medical History Medical History Arthritis Asthma Fatty liver Hypothyroid Obesity Sarcoidosis Past Family History Family History Other Family history non-contributory Past Surgical History Surgical History History of History of liver biopsy History of lung biopsy History of tubal ligation Past Anesthesia History No Hx of Anesthesia Complications and No Family Hx of Anesthesia Complications History of PONV No Motion Sickness Screening History of Motion Sickness: No Social History Smoking Status: Light tobacco smoker tobacco type: cigarettes Smoking cigarettes per day: smokes 1 pack/month, recreationally Do You Dip or Chew Tobacco: No Hx Alcohol Use: Yes Alcohol type: wine alcohol intake frequency: holidays/special occasions only Alcohol Intake Frequency Comment: 1-2/month Hx Substance Use: No substance use type: does not use Exercise / Class Metabolic Activity III < 4 Walking/Shop/Light housework Physical Exam Vital Signs Last Vital Signs Temp 36.7 C 07/20/18 15:28 Pulse 74 07/20/18 15:28 Resp 16 07/20/18 15:28 BP 114/67 07/20/18 15:28 Pulse Ox 93 07/20/18 15:28 ENMT Mouth: no dentition abnormality Thyromental Distance: < 3.5 Finger Breadths Mallampati Class: III Respiratory normal respiratory effort Auscultation: lungs clear to auscultation bilaterally Cardiovascular Rate/Rhythm: regular rate and regular rhythm Heart Sounds: no murmur Vessels: no carotid bruit Musculoskeletal Spine: normal cervical ROM and no pain with cervical ROM Extremities: + extremities abnormal to inspection Neurologic moves all extremities Motor/Sensory: no sensory deficit Psychiatric Orientation: alert and oriented x 3 Testing Laboratory Results 07/20/18 07:18 07/20/18 07:18 PT 10.9 Seconds (9.0-12.0) 07/20/18 07:18 INR 1.1 (0.9-1.1) 07/20/18 07:18 Urine Color Yellow 07/19/18 18:26 Urine Appearance Cloudy (Clear) H 07/19/18 18:26 Urine pH 5.5 (4.5-7.5) 07/19/18 18: Ur Specific [place] 1.017 (1.000-1.030) 07/19/18 18:26 Urine Protein Negative (Negative) 07/19/18 18:26 Urine Glucose (UA) Negative (Negative) 07/19/18 18: Urine Ketones Negative (Negative) 07/19/18 18:26 Urine Nitrite Negative (Negative) 07/19/18 18:26 Ur Leukocyte Esterase 1+ (Negative) H 07/19/18 18:26 Urine WBC (Auto) 10-30 /hpf (0-5) H 07/19/18 18:26 Urine RBC (Auto) 10-30 /hpf (0-4) H 07/19/18 18:26 U Hyaline Cast (Auto) 1-5 /lpf (0-5) 07/19/18 18:26 U Epithel Cells (Auto) >30 /lpf (0-5) H 07/19/18 18:26 Urine Bacteria (Auto) Negative (Negative) 07/19/18 18:26 07/19/18 18:26 Urine Culture - Preliminary Urine,Clean Catch No growth - Less than 1,000 colonies/mL, Final report to follow.
[2018-07-20] MEDS ORDERED: PROPOFOL IV EMULSION 10 MG/ML 20 ML VIAL IV ONE ×2 (16:09→16:33)
[2018-07-20] MEDS ORDERED: LIDOCAINE HCL 2% 2 ML VIAL/AMP(20MG/ML) INFIL ONE (16:09)
[2018-07-20] MEDS ORDERED: fentaNYL citrate 100 MCG/2 ML VIAL ONE (16:10)
[2018-07-20] MEDS ORDERED: MIDAZOLAM HCL 1 MG/ML 2ML VIAL ONE (16:10)
[2018-07-20] MEDS ORDERED: IOTHALAMATE MEGLUMINE II 17.2% 250 ML VIAL ONE (16:36)
--- NOTE | 2018-07-20 16:48 | Operative Report ---
Post Operative Report Pre & Post Diagnosis Operation Date: 07/20/18 12:20 Pre-Op Diagnosis: Right ureteral stone Post-Op Diagnosis: Right ureteral stone Procedure Operation Date: 07/20/18 12:20 Actual Procedures p Cystoscopy, Retrograde Pyelogram, Right Stent Placement(Right) - Markus Whittington MD Surgeon Chip Whittington MD Solids Control Technician none Estimated Blood Loss 0 Findings Consistent with Post-Op Diagnosis Specimens none Description of Procedure Patient was identified in the preoperative holding area, appropriate informed consents reviewed and completed and the patient was transferred to the operating suite, upon arrival she received appropriate preoperative antibiotics in the form of Cipro. Adequate sedation was achieved she was placed in dorsal lithotomy position where she was sterilely prepped and draped in standard fashion. To begin the case I passed a 22 Canadian cystoscope with 30 degree lens. Inspection of the bladder revealed no abnormal mucosal findings. Right ureteral orifice was identified and cannulated with a sensor wire a 5 Canadian open-ended catheter. I could not readily appreciate the stone on active fluoroscopy, however I encountered resistance at the same exact location as the suspected stone on KUB. This was at the lower aspect of the pelvic osseous structures/lateral border of the sacrum. I was able to gently navigate this wire beyond it and up to the kidney. I advanced the 5 Canadian open-ended catheter over the wire saw hydronephrotic drip after removing the wire. I then opacified the collecting system with [place]. She has a notably hydronephrotic right kidney. I replaced the wire to the upper pole and placed a 6 Canadian by 24 cm double-J stent seeing a good curl at the UPJ and a good curl in the bladder. There were no complications, the bladder was decompressed, she was reversed from anesthesia and taken to the PACU in stable condition. I attest to the content of the Intraoperative Record and any orders documented therein. Any exceptions are noted below.
[2018-07-20] MEDS ORDERED: ePHEDrine sulfate 50 MG/ML AMP IV PRN (16:53)
[2018-07-20] MEDS ORDERED: ATROPINE SULFATE 0.1 MG/ML 10ML SYR IV PRN (16:53)
--- NOTE | 2018-07-20 17:09 | Fluoroscopy Report ---
FL retrograde includes kub HISTORY: RT CYSTO/LASER/SENT FLUOROSCOPY TIME: 31 seconds FINDINGS: 4 fluoroscopic spot images were submitted for review. Images to ensure retrograde opacifica tion of the right renal collecting system. There is right-sided hydronephrosis. This is followed by p lacement of a right ureteral stent. Only the proximal portion of the stent is identified and appears to be located within the right renal pelvis. IMPRESSION: Fluoroscopy provided for right ureteral stent placement.. Electronically signed by: Guanako Diaz M.D. 07/20/2018 5:07 PM
--- NOTE | 2018-07-20 17:10 | Anesthesiology Progress Note ---
Date of Service July 20, 2018 Anesthesia Post Procedure Vital Signs Vital Signs: Temp Pulse Pulse Pulse Resp BP BP 07/20/18 17:00 84 14 123/73 07/20/18 16:50 36.3 C L 84 16 166/66 H 07/20/18 15:28 36.7 C 75 74 16 114/67 07/20/18 15:09 36.9 C 74 16 131/85 07/20/18 11:06 36.9 C 81 16 139/91 07/20/18 07:25 37.0 C 82 16 124/82 07/19/18 22:49 36.9 C 87 18 120/81 07/19/18 22:15 74 18 130/75 07/19/18 21:31 80 17 119/65 07/19/18 19:11 71 18 128/84 Pulse Ox 07/20/18 17:00 94 07/20/18 16:50 98 07/20/18 15:28 93 07/20/18 15:09 95 07/20/18 11:06 92 07/20/18 07:25 93 07/19/18 22:49 94 07/19/18 22:15 97 07/19/18 21:31 96 07/19/18 19:11 93 Pain Intensity Flank: Pain Intensity: 6 Notes Mental Status: alert / awake / arousable Patient Amnestic to Procedure: Yes Nausea / Vomiting: adequately controlled Pain: adequately controlled Airway Patency, RR, SpO2: stable & adequate BP & HR: stable & adequate Hydration State: stable & adequate Anesthetic Complications: no major complications apparent
--- NOTE | 2018-07-20 19:23 | Hospitalist Progress Note ---
Date of Service July 20, 2018 Assessment & Plan (1) Ureteral calculus, right: Symptomatic right ureteral calculus with hydronephrosis and suspected UTI. Seen in consultation by Urology. Cysto with right ureteral stent placement performed by Dr. Whittington. Discharge on tamsulosin, cefuroxime, Pyridium. (2) Complicated UTI (urinary tract infection): As noted above. (3) Hydronephrosis: As noted above. (4) DVT prophylaxis: Very low risk for VTE per IMPROVE risk assessment model, so prophylaxis not indicated. Ambulating. (5) Discharge planning issues: Discharge to home. Medical follow-up with Dr. Lopez. Urology follow-up with Dr. Whittington. Subjective Ureteral stent placed by Dr. Whittington. Doing well after procedure. Only has mild postop discomfort with some dysuria and mild hematuria. No fever, nausea, vomiting. Would like to go home. Physical Exam 2 Vital Signs (Past 24 Hours): Last Vital Signs Temp 36.4 C L 07/20/18 18:44 Pulse 80 07/20/18 18:44 Resp 16 07/20/18 18:44 BP 131/87 07/20/18 18:44 Pulse Ox 95 07/20/18 18:44 Constitutional: no acute distress Respiratory: no respiratory distress Auscultation: lungs clear to auscultation bilaterally Cardiovascular: Rate/Rhythm: regular rate and regular rhythm Vessels: no JVD Extremities: no calf tenderness and no edema Gastrointestinal (Abdomen): normal bowel sounds, soft, nontender, no hepatosplenomegaly (no CVAT) Skin: no rashes, warm and dry Psychiatric: Orientation: alert and oriented x 3 _ (1) Hydronephrosis Hydronephrosis type: unspecified Qualified Code(s): N13.30 - Unspecified hydronephrosis
[2018-07-20] MEDS ORDERED: PHENAZOPYRIDINE HCL 200 MG TAB PO ONE (20:17)
[2018-07-20] MEDS ORDERED: PYRIDIUM 200MG HOME PACK PO ONE (20:17)
--- NOTE | 2018-07-21 19:44 | Discharge Summary ---
Date of Service July 21, 2018 Admission HPI Per Admitting Provider History obtained from patient and records. Medical history significant for psoriatic arthritis, asthma/pulmonary sarcoidosis, hypothyroidism, intermittent tobacco abuse. 10 days ago patient seen at [facility] for UTI symptoms attributed to UTI. Patient prescribed Macrodantin. Patient still unwell a week later. Patient noted worsening right flank pain, no hematuria, no fever, no chills. CAT scan of the abdomen pelvis done at [facility] last week showed 3 kidney stones on the right as per patient. She was prescribed Cefuroxime and Flomax. Outpatient urology referral in [place], [place] contemplated. Patient brought by sister to the emergency room for worsening symptoms. Admission Exam Per Admitting Provider GENERAL: Comfortable, obese, no respiratory distress SKIN: Normal color, warm HEENT: [place] palpebral conjunctivae, no ptosis, dry buccal mucosa NECK : Supple, short neck, no tenderness CHEST : CTA, no tenderness HEART : RRR, no obvious murmurs ABDOMEN: Some distention, right-sided abdominal tenderness EXTREMITIES : No LE swelling/tenderness, no other conspicuous deformities noted NEUROLOGIC : Coherent, no facial asymmetry, no other gross focality Principal Diagnosis right ureteral calculus with hydronephrosis and probable UTI Discharge Data Allergies Allergy/AdvReac Type Severity Reaction Status Date / Time prednisone Allergy Severe Swelling Verified 07/19/18 19:04 of Lip/Tongue/Throat Consultations 07/19/18 20:15 ED Decision to Admit Stat 07/19/18 22:36 Consult Health Information Management Routine 07/19/18 22:45 Consult Urology Routine Procedures Performed Operation Date: 07/20/18 12:20 Actual Procedures p Cystoscopy, Retrograde Pyelogram, Right Stent Placement(Right) - Markus Whittington MD Ordered Studies 07/19/18 18:09 US renal/blad retro comp Stat 07/20/18 11:30 FL retrograde includes kub Routine Hospital Course (1) Ureteral calculus, right: Symptomatic right ureteral calculus with hydronephrosis and suspected UTI. Seen in consultation by Urology. Cysto with right ureteral stent placement performed by Dr. Whittington. Discharge on tamsulosin, cefuroxime, Pyridium. (2) Complicated UTI (urinary tract infection): As noted above. (3) Hydronephrosis: As noted above. (4) DVT prophylaxis: Very low risk for VTE per IMPROVE risk assessment model, so prophylaxis not indicated. Ambulating. (5) Discharge planning issues: Discharge to home. Medical follow-up with Dr. Lopez. Urology follow-up with Dr. Whittington. Total Time Total Time Spent Total Time Spent (In Minutes): 25 Discharge Plan Discharge Items Patient Disposition: Home - Self-Care Reason For Visit: kidney stone Discharge Diagnosis: kidney stone Discharge Goals: Decrease discomfort and Improve disease control Activity: Resume your previous activity Non-emergency contact: Primary Care Provider, Hospitalist and Urologist Call non-emergency contact if: you have any medication questions, your symptoms worsen and your temperature is above 101 Follow-up/Referrals: Markus Whittington MD [Physician] - (Office will call you with appointment.) Erik Lopez MD [Primary Care Provider] - Diet: Regular Addtl Provider Instructions: OTHER INSTRUCTIONS: Seek medical attention if you have: * temperature above 101 * chest pain or trouble breathing * abdominal pain, nausea, vomiting * diarrhea, dark stools or bloody stools * trouble urinating * any unanswered questions or concerns Call [phone] if symptoms are severe. Call if you have any questions or problems. My cell # is [phone]. You can also reach a [facility] hospitalist on duty at [facility] 24 hours a day by calling [phone]. Prescriptions: New phenazopyridine [Pyridium] 200 mg tablet 200 mg PO Q8H PRN (Reason: pain) Qty: 12 RF: 0 Continue fluoxetine [Prozac] 40 mg Capsule 40 mg PO DAILY RF: 0 ketorolac 10 mg Tablet 10 mg PO Q6H PRN (Reason: Pain) RF: 0 tamsulosin [Flomax] 0.4 mg Capsule 0.4 mg PO DAILY RF: 0 levothyroxine 125 mcg Tablet 125 mcg PO DAILY RF: 0 cefuroxime axetil 500 mg Tablet 500 mg PO Q12H RF: 0 loratadine 10 mg Tablet 10 mg PO DAILY RF: 0 Stand-Alone Forms: My [facility], Work/School Release (Inpt) Discharge Orders: Discharge Order (Routine); Ordered 07/20/18 Ordered By: Sotero Odonnell Admission Data Admit Date/Time: 07/19/18 22:01 Attending Provider: Sotero Odonnell Admit Provider: Apolinar Jarrell Primary Care Provider: Erik Lopez Other Providers: Apolinar Jarrell ; Markus Whittington Service: Medical Other Interventions: Discharge Summary Assessment (RN) Last Done: 07/20/18 19:55 DC Date/Time DO NOT enter until pt leaves facility: 07/20/18 20:46
== END 2018-07-20 20:46 | disposition home or self-care (01) | DRG 694 ==
LOC: ED 15:51 → SUATTDRO 22:01 → 3W 22:01
DX: Z83.3 Family history of diabetes mellitus; Z81.8 Family history of other mental and behavioral disorders; F17.210 Nicotine dependence, cigarettes, uncomplicated; Z98.51 Tubal ligation status; E66.9 Obesity, unspecified; J45.909 Unspecified asthma, uncomplicated; N23 Unspecified renal colic; N20.2 Calculus of kidney with calculus of ureter; Z82.0 Family history of epilepsy and other diseases of the nervous system; N13.6 Pyonephrosis; E03.9 Hypothyroidism, unspecified; Z82.49 Family history of ischemic heart disease and other diseases of the circulatory system; M19.90 Unspecified osteoarthritis, unspecified site; N13.9 Obstructive and reflux uropathy, unspecified; Z68.41 Body mass index [BMI] 40.0-44.9, adult